=== PATIENT | male | born 1965 | race Caucasian/White ===

== ENCOUNTER 2020-02-09 13:00 | Emergency (ER) | payer OTHER ==
[~2020-02-09] VITALS: Ht 188 cm; Wt 117.9 kg
[2020-02-09 13:29] VITALS: BP_SYST 148
--- NOTE | 2020-02-09 13:30 | NUR ---
Placed in room 04 . Placed on cardiac exercise specialist, blood pressure machine and pulse oximeter. To gown for exam. Side rails up.
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
--- NOTE | 2020-02-09 13:57 | NUR ---
ER at bedside examining patient.
[2020-02-09] MEDS ORDERED: KETOROLAC TROMETHAMINE 60 MG/2 ML VIAL IM ONE ×2 (15:00→15:10)
--- NOTE | 2020-02-09 15:21 | NUR ---
Patient given written and verbal discharge instructions and verbalizes understanding. ER MD WU discussed with patient the results and treatment provided. Patient in stable condition. ID arm band removed. IV catheter removed intact and dressing applied, no active bleeding. Rx of NAPROSYN given. Patient educated on pain management and to follow up with PMD. Pain Scale 1/10. Opportunity for questions provided and answered. Medication side effect fact sheet provided.
[2020-02-09 15:23] VITALS: BP_SYST 145
--- NOTE | 2020-02-10 10:05 | NUR ---
Pt returned to ER, speaking with Dr Billy about cervical fracture result, Dr Billy placing C-collar on patient, patient given pain medication, pt ambulatory.
== END 2020-02-09 15:21 | disposition home or self-care (01) ==
LOC: SED 13:00
DX: S13.4XXA Sprain of ligaments of cervical spine, initial encounter (principal); S00.81XA Abrasion of other part of head, initial encounter; S99.921A Unspecified injury of right foot, initial encounter; V49.9XXA Car occupant (driver) (passenger) injured in unspecified traffic accident, initial encounter; Y93.89 Activity, other specified; Y92.413 State road as the place of occurrence of the external cause; Y99.8 Other external cause status
CPT/HCPCS: 70450; 72125; 73620; 96372; 99285; J1885